=== PATIENT | female | born 1945 | race Caucasian/White ===

== ENCOUNTER → 2018-11-12 | Outpatient (CLI) | payer MEDICARE, OTHER ==
[~2018-11-12] MED LIST: BUPR-168 PO; CEPH500C PO; D50KC PO; DULO60CA58 PO; FLUT16SP22 NSEACH; LIRA0.6P SQ; LOSA50TA6 PO; LVT.05T PO; MODA200T PO; PHEN200T27 PO; VIVELLE DOT TD
--- NOTE | 2018-11-12 10:45 | Diagnostic Imaging Report ---
PROCEDURE: MR imaging cervical spine without contrast. TECHNIQUE: Multiplanar, multisequence MR imaging of the cervical spine was performed without contrast. INDICATION: Neck and left shoulder pain. No prior examinations are available for comparison. FINDINGS: There are stable postsurgical changes of an anterior cervical fusion from C4 through C7. The alignment of cervical spine is otherwise normal. The prevertebral soft tissues are within normal limits. Posterior fossa is unremarkable. The visualized portions of the spinal cord are normal in signal intensity and morphology. C2-C3 is unremarkable. At C3-C4, there is some minimal annular bulging and mild posterior facet arthropathy. There is slight effacement of ventral thecal sac. At C4-C5, there is some annular bulging with slight effacement of ventral thecal sac. There is mild bilateral uncovertebral joint hypertrophy with some moderate bilateral neural foraminal encroachment. At C5-C6, broad-based annular bulging resulting in some moderate spinal stenosis. There is some uncovertebral joint hypertrophy bilaterally with at least moderate bilateral neural foraminal encroachment. At C6-C7, there is minimal annular bulging. C7-T1 is unremarkable. IMPRESSION: Postsurgical changes of an anterior cervical fusion from C4 through C7. Moderate cervical spondylosis and degenerative disc disease as described. Dictated by: Dictated on workstation # [id number]
== END ==
LOC: RAD 08:52
PROVIDERS: ATTEND Physician Assistant
DX: M47.812 Spondylosis without myelopathy or radiculopathy, cervical region (principal); M50.30 Other cervical disc degeneration, unspecified cervical region; Z98.1 Arthrodesis status
CPT/HCPCS: 72141

== ENCOUNTER 2019-01-29 16:26 | Emergency (ER) | payer MEDICARE, OTHER ==
[~2019-01-29] VITALS: Ht 167.6 cm; Wt 83.5 kg
--- OUTSIDE RECORDS SUMMARY | 2019-01-29 16:30 | XMS REPORT | Continuity of Care Document ---
Author Organization Unknown Address Unknown Allergies Active Description Code Type Severity Reaction Onset Reported/Identified Relationship to Patient Clinical Status Yes No Known Drug Allergies [id number] Drug Allergy Unknown N/A 10/05/2008 Medications There is no data. Problems Date Dx Coded Attending Type Code Diagnosis Diagnosed By 01/26/2014 NORI LUNDBERG MD Ot 592.1 CALCULUS OF URETER 01/26/2014 NORI LUNDBERG MD Ot V58.69 OT MED,LT,CURRENT USE 11/12/2018 NORI LUNDBERG MD Ot 592.9 URINARY CALCULUS NOS 11/12/2018 NORI LUNDBERG MD, Ot 592.1 CALCULUS OF URETER 11/12/2018 NORI LUNDBERG MD Ot V72.81 [id number] CARDIOVASCULAR 11/12/2018 NORI LUNDBERG MD Ot V74.8 SCREEN-BACTERIAL DIS NEC 11/12/2018 IKER YADAV Ot M47.812 SPONDYLOSIS W/O MYELOPATHY OR RADICULOPA 11/12/2018 IKER YADAV Ot M50.30 OTHER CERVICAL DISC DEGENERATION, UNSP C 11/12/2018 IKER YADAV Ot Z98.1 ARTHRODESIS STATUS 11/18/2018 IKER YADAV Ot M47.812 SPONDYLOSIS W/O MYELOPATHY OR RADICULOPA 11/18/2018 IKER YADAV Ot M50.30 OTHER CERVICAL DISC DEGENERATION, UNSP C 11/18/2018 IKER YADAV Ot Z98.1 ARTHRODESIS STATUS 12/02/2018 IKER YADAV Ot M47.812 SPONDYLOSIS W/O MYELOPATHY OR RADICULOPA 12/02/2018 IKER YADAV Ot M50.30 OTHER CERVICAL DISC DEGENERATION, UNSP C 12/02/2018 IKER YADAV Ot Z98.1 ARTHRODESIS STATUS 12/17/2018 IKER YADAV Ot M47.812 SPONDYLOSIS W/O MYELOPATHY OR RADICULOPA 12/17/2018 IKER YADAV Ot M50.30 OTHER CERVICAL DISC DEGENERATION, UNSP C 12/17/2018 IKER YADAV Ot Z98.1 ARTHRODESIS STATUS Procedures There is no data. Results There is no data. Encounters ACCT No. Visit Date/Time Discharge Status Pt. Type Provider Facility Loc./Unit Complaint [id number] 01/16/2019 14:19:00 01/16/2019 23:59:59 CLS Preadmit TRE CHANCE APRN [facility] RAD SCREENING [id number] 11/12/2018 08:52:00 11/12/2018 23:59:59 CLS Outpatient IKER YADAV [facility] RAD NECK PAIN [id number] 01/26/2014 07:35:00 01/26/2014 13:30:00 DIS Outpatient NORI LUNDBERG MD [facility] SDC RIGHT URETERAL STONE [id number] 01/25/2014 14:11:00 01/25/2014 23:59:59 CLS Outpatient NORI LUNDBERG MD [facility] PREOP RIGHT URETERAL STONE [id number] 01/21/2014 12:59:00 01/21/2014 23:59:59 CLS Outpatient NORI LUNDBERG MD [facility] RAD STONE
[2019-01-29 16:52] LABS: CLARITY,URINE SL CLOUDY; COLOR,URINE YELLOW; PROTEIN,URINE 2+ (NEGATIVE)
[2019-01-29 16:53] LABS: BILIRUBIN,URINE NEGATIVE (NEGATIVE); GLUCOSE, URINE (UA) TRACE (NEGATIVE); KETONES,URINE TRACE (NEGATIVE); LEUKOCYTE ESTERASE ,URINE 2+ (NEGATIVE); NITRITE,URINE NEGATIVE (NEGATIVE); UROBILINOGEN,URINE 0.2 MG/DL (NORMAL)
[2019-01-29 16:56] LABS: BACTERIA,URINE FEW /HPF; RBC,URINE >100 /HPF; WBC,URINE >100 /HPF
[2019-01-29] MEDS ORDERED: PHENAZOPYRIDINE 100 MG (PYRIDIUM) TABLET PO ONE (17:00)
--- NOTE | 2019-01-29 17:02 | ED GU-Female ---
General Chief Complaint: - Urinary Stated Complaint: URINARY PAIN Source: patient Exam Limitations: no limitations History of Present Illness Date Seen by Provider: Jan 29, 2019 Time Seen by Provider: 16:55 Initial Comments This 73-year-old white female presents with a complaint of dysuria and frequency that began following a cystoscopy a week ago. The patient's had previous urinary tract infections. She states that this discomfort is worse and she has experienced in the past. She denies associated fever or chill. She's had no associated flank pain. She denies nausea or vomiting. She has taken no medication to this point. Allergies and Home Medications Allergies Coded Allergies: No Known Drug Allergies (Verified Allergy, Unknown, 10/05/08) Home Medications Bupropion Hcl 75 Mg Tablet, 75 MG PO BID, (Reported) Cephalexin Monohydrate 500 Mg Capsule, 500 MG PO TID, (Reported) Duloxetine HCl 60 Mg Capsule.dr, 60 MG PO DAILY, (Reported) Ergocalciferol 50,000 Units Cap, 50,000 UNITS PO DAILY, (Reported) Fluticasone Propionate 16 Gm Naspr, 2 SPRAYS NSEACH DAILY, (Reported) Levothyroxine Sodium 50 Mcg Tablet, 50 MCG PO DAILY, (Reported) Liraglutide 0.6 Mg/0.1 Ml Pen.injctr, 0.6 MG SQ HS, (Reported) Losartan Potassium 50 Mg Tablet, 50 MG PO DAILY, (Reported) Modafinil 200 Mg Tablet, 200 MG PO DAILY, (Reported) Phenazopyridine Hcl 200 Mg Tablet, 1 EACH PO TID PRN NEW PRESCRIPTION CALLED IN TO [facility]. Prescribed by: CARMEN MOSES on 01/26/14 1101 [Vivelle Dot Patch] , 0.1 MG TD Q72 HRS, (Reported) Patient Home Medication List Home Medication List Reviewed: Yes Review of Systems Review of Systems Constitutional: No chills, No fever EENTM: no symptoms reported Respiratory: no symptoms reported Cardiovascular: No chest pain Gastrointestinal: no symptoms reported Genitourinary: burning, dysuria, frequency; denies flank pain Musculoskeletal: No back pain Skin: no symptoms reported Psychiatric/Neurological: No Symptoms Reported Endocrine: No Symptoms Reported Past Opgybai-Mcsscx-Mipfbp Hx Past Med/Social Hx: Reviewed Nursing Past Med/Soc Hx Past Medical History Reproductive Disorders: No Physical Exam Vital Signs Capillary Refill : Height, Weight, BMI Height: 5'6.00" Weight: 184lbs. oz. 83.585846go; BMI Method: General Appearance: WD/WN, mild distress HEENT: normal ENT inspection Neck: normal inspection Cardiovascular: regular rate, rhythm Respiratory: lungs clear Gastrointestinal: normal bowel sounds, soft, tenderness Back: normal inspection Extremities: normal range of motion, non-tender Neurologic/Psychiatric: no motor/sensory deficits, alert, normal mood/affect Skin: normal color, warm/dry Progress/Results/Core Measures Suspected Sepsis SIRS Temperature: Pulse: Respiratory Rate: Blood Pressure / Mean: Results/Orders Lab Results Laboratory Tests Test 01/29/19 16:30 Range/Units Urine Color YELLOW Urine Clarity SL CLOUDY Urine pH 6.0 5-9 Urine Specific [place] >=1.030 1.016-1.022 Urine Protein 2+ H NEGATIVE Urine Glucose (UA) TRACE H NEGATIVE Urine Ketones TRACE H NEGATIVE Urine Nitrite NEGATIVE NEGATIVE Urine Bilirubin NEGATIVE NEGATIVE Urine Urobilinogen 0.2 NORMAL MG/DL Urine Leukocyte Esterase 2+ H NEGATIVE Urine RBC (Auto) 3+ H NEGATIVE Urine RBC >100 H /HPF Urine WBC >100 H /HPF Urine Squamous Epithelial Cells 5-10 /HPF Urine Crystals NONE /LPF Urine Bacteria FEW H /HPF Urine Casts NONE /LPF Urine Mucus NEGATIVE /LPF Urine Culture Indicated YES My Orders Orders - TIKA FAULKNER MD Ua Culture If Indicated (01/29/19 16:42) Phenazopyridine Tablet (Pyridium Tablet) (01/29/19 17:00) Urine Culture (01/29/19 16:30) Ceftriaxone For Im Use (Rocephin For Im (01/30/19 09:00) Lidocaine 1% Inj 20 Ml (Xylocaine 1% Inj (01/29/19 17:30) Medications Given in ED Current Medications Medications Dose Ordered Sig/Jaiden Route Start Time Stop Time Status Last Admin Dose Admin Phenazopyridine HCl 200 mg ONCE ONCE PO 01/29/19 17:00 01/29/19 17:01 DC 01/29/19 17:07 200 MG Vital Signs/I&O Capillary Refill : Progress Note : Time: 17:22 Progress Note Patient's urinalysis demonstrated urinary tract infection. Culture and sensitivity was requested. The patient was moderately improved with Pyridium orally. Patient received a gram Rocephin IM. Discussed the findings with patient and family. We will initiate Macrobid for the next 7 days. I asked that she use Pyridium for ladder spasm and discomfort. I recommended following up with Dr. BERGER on Saturday. I invited her to return the emergency department if any further problems or questions. Departure Impression Primary Impression: Urinary tract infection Qualified Codes: N30.00 - Acute cystitis without hematuria Disposition: HOME, SELF-CARE Condition: Improved Departure-Patient Inst. Decision time for Depature: 17:23 Referrals: QUINTON BERGER DO (PCP/Family) Primary Care Physician Patient Instructions: Urinary Tract Infection, Adult (DC) Add. Discharge Instructions: Macrobid and Pyridium as prescribed. Follow-up Dr. BERGER on Saturday. Return if any problems or questions. All discharge instructions reviewed with patient and/or family. Voiced understanding. Scripts Phenazopyridine HCl (Pyridium) 200 Mg Tablet 1 TAB PO TID for 7 Days, TAB Prov: TIKA FAULKNER MD 01/29/19 Nitrofurantoin Monohyd/M-Cryst (Macrobid 100 mg Capsule) 100 Mg Capsule 1 TAB PO BID for 7 Days, CAP Prov: TIKA FAULKNER MD 01/29/19 TIKA FAULKNER MD Jan 29, 2019 17:02
[2019-01-29] MEDS ORDERED: cefTRIAXone 1,000 MG/2.86 ml vial (IM ONLY) ONE (17:23)
[2019-01-29] MEDS ORDERED: PHEN-640 PO (17:25)
[2019-01-29] MEDS ORDERED: NITR-65 PO (17:25)
[2019-01-29] MEDS ORDERED: LIDOCAINE 1% INJ 20 ML 20 ML VIAL INJ ONE (17:30)
[2019-01-29 17:46] VITALS: BP 166/68
[2019-01-30] MEDS ORDERED: cefTRIAXone 1,000 MG/2.86 ml vial (IM ONLY) IM SCH (09:00)
== END 2019-01-29 17:45 | disposition home or self-care (01) ==
LOC: EDUNIT# 16:26 → ER FS 16:27
DX: N39.0 Urinary tract infection, site not specified (principal); Z79.51 Long term (current) use of inhaled steroids
CPT/HCPCS: 81000; 87077; 87088; 87186; 96372; 99284

== ENCOUNTER 2021-03-06 10:38 | Emergency (ER) | payer MEDICARE, OTHER ==
[~2021-03-06] VITALS: Ht 165.1 cm; Wt 78.0 kg
[~2021-03-06 10:38] MED LIST changes: +NITR-65 PO; +PHEN-640 PO
--- NOTE | 2021-03-06 10:55 | ED General ---
General Chief Complaint: Trauma-Non Activation Stated Complaint: FALL History of Present Illness Date Seen by Provider: Mar 06, 2021 Time Seen by Provider: 10:51 Initial Comments 75-year-old female presents via EMS with complaint of fall today at home. States her feet slipped out from under her and she laid on her bottom. Now having pain in her buttocks area without radiation or weakness. Denies loss of bowel or bladder control, however she states "I think you may have a UTI" denies blood in her urine, frequency or hesitancy. Denies any back or neck pain, denies head injury Allergies and Home Medications Allergies Coded Allergies: No Known Drug Allergies (Verified Allergy, Unknown, 10/05/08) Home Medications Bupropion Hcl 75 Mg Tablet, 75 MG PO BID, (Reported) Cephalexin Monohydrate 500 Mg Capsule, 500 MG PO TID, (Reported) Duloxetine HCl 60 Mg Capsule.dr, 60 MG PO DAILY, (Reported) Ergocalciferol 50,000 Units Cap, 50,000 UNITS PO DAILY, (Reported) Fluticasone Propionate 16 Gm Naspr, 2 SPRAYS NSEACH DAILY, (Reported) Levothyroxine Sodium 50 Mcg Tablet, 50 MCG PO DAILY, (Reported) Liraglutide 0.6 Mg/0.1 Ml Pen.injctr, 0.6 MG SQ HS, (Reported) Losartan Potassium 50 Mg Tablet, 50 MG PO DAILY, (Reported) Modafinil 200 Mg Tablet, 200 MG PO DAILY, (Reported) Nitrofurantoin Monohyd/M-Cryst 100 Mg Capsule, 1 TAB PO BID Prescribed by: TIKA FAULKNER MD on 01/29/19 1725 Phenazopyridine HCl 200 Mg Tablet, 1 TAB PO TID Prescribed by: TIKA FAULKNER MD on 01/29/19 1725 Phenazopyridine Hcl 200 Mg Tablet, 1 EACH PO TID PRN NEW PRESCRIPTION CALLED IN TO [facility]. Prescribed by: CARMEN MOSES on 01/26/14 1101 Sulfamethoxazole/Trimethoprim 1 Each Tablet, 1 EACH PO BID Prescribed by: TRICIA MAY on 03/06/21 1210 [Vivelle Dot Patch] , 0.1 MG TD Q72 HRS, (Reported) Patient Home Medication List Home Medication List Reviewed: Yes Review of Systems Review of Systems Constitutional: No fever, No malaise, No weakness Respiratory: No cough, No short of breath Cardiovascular: No chest pain, No edema, No palpitations Gastrointestinal: No abdominal pain, No loss of appetite, No nausea, No vomiting Genitourinary: No dysuria, No frequency, No hematuria Musculoskeletal: No back pain, No joint pain; other (pain in buttocks and sacral area) Skin: No change in color, No rash Psychiatric/Neurological: Denies Numbness, Denies Paresthesia, Denies Tremors, Denies Weakness Past Rcmlsnu-Heyink-Rzglcy Hx Patient Social History Tobacco Use?: No Immunizations Up To Date Tetanus Booster (TDap): Unknown Seasonal Allergies Seasonal Allergies: No Past Medical History Surgeries: Yes (RIGHT KNEE SCOPE, SINUS SX, CATARACTS, CYSTOSCOPY, BLADDER TIE UP) Respiratory: No Cardiac: Yes Hypertension Neurological: No Reproductive Disorders: No Genitourinary: No Gastrointestinal: No Musculoskeletal: Yes (ARTHRITIIS) Endocrine: Yes Hypothyroidsim, Diabetes, Non-Insulin dep HEENT: No Cancer: No Psychosocial: Yes Integumentary: No Blood Disorders: No Physical Exam Vital Signs Vital Signs - First Documented Capillary Refill : Height, Weight, BMI Height: 5'6.00" Weight: 184lbs. oz. 83.419575jv; 29.69 BMI Method:Stated General Appearance: No Apparent Distress, WD/WN Respiratory: Chest Non Tender, Lungs Clear Cardiovascular: Regular Rate, Rhythm, No Edema, No JVD Gastrointestinal: Non Tender, Soft Back: Normal Inspection, No CVA Tenderness, No Vertebral Tenderness Extremity: Normal Capillary Refill, Non Tender, Other Neurologic/Psychiatric: Alert, No Motor/Sensory Deficits, Normal Mood/Affect Skin: Normal Color, Warm/Dry Progress/Results/Core Measures Suspected Sepsis SIRS Temperature: Pulse: Respiratory Rate: Blood Pressure / Mean: Results/Orders Lab Results Laboratory Tests Test 03/06/21 11:40 Range/Units Urine Color YELLOW Urine Clarity CLOUDY Urine pH 6.5 5-9 Urine Specific [place] 1.025 H 1.016-1.022 Urine Protein 2+ H NEGATIVE Urine Glucose (UA) NEGATIVE NEGATIVE Urine Ketones 1+ H NEGATIVE Urine Nitrite NEGATIVE NEGATIVE Urine Bilirubin NEGATIVE NEGATIVE Urine Urobilinogen 2.0 < = 1.0 MG/DL Urine Leukocyte Esterase 2+ H NEGATIVE Urine RBC (Auto) 2+ H NEGATIVE Urine RBC NONE /HPF Urine WBC TNTC H /HPF Urine Squamous Epithelial Cells 0-2 /HPF Urine Crystals NONE /LPF Urine Bacteria LARGE H /HPF Urine Casts NONE /LPF Urine Mucus NEGATIVE /LPF Urine Culture Indicated YES My Orders Orders - TRICIA MAY DO Pelvis (Ap) (03/06/21 10:49) Urinalysis (03/06/21 10:49) Urine Culture (03/06/21 11:40) Vital Signs/I&O 03/06/21 03/06/21 10:38 10:38 Temp 37.9 37.9 Pulse 100 100 Resp 18 18 B/P (MAP) 144/66 (92) 144/66 (92) Pulse Ox 94 94 O2 Delivery Room Air Room Air Capillary Refill : Diagnostic Imaging Diagonstic Imaging: Xray Comments FINDINGS AND IMPRESSION: 1: Bowel gas obscures the lower sacrum and coccyx region rendering this area uninterpretable. Dedicated x-rays of the sacrum/coccyx including lateral views may help better evaluate. 2: The remainder of the hips, pelvis, and visualized lower lumbar spine shows no acute fracture or dislocation. 3: There is enthesopathy involving the greater trochanter. There are degenerative spurs involving the bilateral sacroiliac joints. Dictated on workstation # [id number] Dict: 03/06/21 1120 Trans: 03/06/21 1124 [id number] Interpreted by: WILLIS PITT MD Electronically signed by: Departure Impression Primary Impression: Fall from ground level Additional Impressions: Sacral contusion Qualified Codes: S30.0XXA - Contusion of lower back and pelvis, initial encounter UTI (urinary tract infection) Qualified Codes: N39.0 - Urinary tract infection, site not specified Disposition: HOME, SELF-CARE Condition: Stable Departure-Patient Inst. Decision time for Depature: 12:10 Referrals: QUINTON BERGER DO (PCP/Family) Primary Care Physician Patient Instructions: Coccyx Injury (DC), Urinary Tract Infection, Adult ED Add. Discharge Instructions: follow up with Dr Berger in 1 week All discharge instructions reviewed with patient and/or family. Voiced understan ding. Scripts Sulfamethoxazole/Trimethoprim (Bactrim Ds Tablet) 1 Each Tablet 1 EACH PO BID, #14 TAB 0 Refills Prov: TRICIA MAY DO 03/06/21 Sulfamethoxazole/Trimethoprim (Bactrim Ds Tablet) 1 Each Tablet 1 EACH PO BID, #14 TAB 0 Refills Prov: TRICIA MAY DO 03/06/21 TRICIA MAY DO Mar 06, 2021 10:55
--- NOTE | 2021-03-06 11:24 | Diagnostic Imaging Report ---
CLINICAL INDICATION: Patient is status post fall with pain to the tailbone. EXAM: X-ray of the pelvis, AP view. COMPARISON: [facility] x-ray dated 01/26/2014. FINDINGS AND IMPRESSION: 1: Bowel gas obscures the lower sacrum and coccyx region rendering this area uninterpretable. Dedicated x-rays of the sacrum/coccyx including lateral views may help better evaluate. 2: The remainder of the hips, pelvis, and visualized lower lumbar spine shows no acute fracture or dislocation. 3: There is enthesopathy involving the greater trochanter. There are degenerative spurs involving the bilateral sacroiliac joints. Dictated by: Dictated on workstation # [id number]
[2021-03-06 12:01] LABS: COLOR,URINE YELLOW
[2021-03-06 12:02] LABS: BACTERIA,URINE LARGE /HPF; BILIRUBIN,URINE NEGATIVE (NEGATIVE); CLARITY,URINE CLOUDY; GLUCOSE, URINE (UA) NEGATIVE (NEGATIVE); KETONES,URINE 1+ (NEGATIVE); LEUKOCYTE ESTERASE ,URINE 2+ (NEGATIVE); NITRITE,URINE NEGATIVE (NEGATIVE); PH,URINE 6.5 (5-9); PROTEIN,URINE 2+ (NEGATIVE); SQUAMOUS EPITHELIAL CELL,UR 0-2 /HPF; WBC,URINE TNTC /HPF
[2021-03-06] MEDS ORDERED: SULF1TAB38 PO ×2 (12:10→12:14)
[2021-03-06 12:33] VITALS: BP 141/79
--- OUTSIDE RECORDS SUMMARY | 2021-03-07 06:30 | XMS REPORT | Clinical Summary ---
Author Author [facility] Organization [facility] Address Unknown Phone Unavailable Care Team Providers Care Translator Deaf Name Role Phone Markus Black PCP Source Comments Some departments are not documenting in the electronic medical record. If you d o not see the information that you expected, contact Release of Information in [facility] Information Management department at [phone] for further assistan ce in locating additional records.[facility] Allergies No Known Active Allergies Medications End Date Status Medication Sig Dispensed Refills Start Date Active alogliptin-metformin Take 1 tablet 0 12.5-1,000 mg tab by mouth twice daily. Active exenatide microspheres 2 Inject under 0 mg/0.65 mL pnij the skin. Active duloxetine DR (CYMBALTA) Take 60 mg by 0 60 mg capsule mouth daily. Active fluoxetine(+) (PROZAC) 40 Take 40 mg by 0 mg capsule mouth daily. Active levothyroxine (SYNTHROID) Take 50 mcg 0 50 mcg tablet by mouth daily 30 minutes before breakfast. Active losartan (COZAAR) 50 mg Take 50 mg by 0 tablet mouth daily. Active modafinil (PROVIGIL) 200 Take 200 mg 0 mg tablet by mouth daily. Active oxybutynin XL (DITROPAN Take 5 mg by 0 XL) 5 mg tablet mouth daily. Active simvastatin (ZOCOR) 20 mg Take 20 mg by 0 tablet mouth at bedtime daily. Active meloxicam (MOBIC) 7.5 mg Take 7.5 mg 0 tablet by mouth daily. Active ciprofloxacin (CIPRO) 250 Take 500 mg 0 mg tablet by mouth daily. Active Problems No known active problems Surgical History Surgery Date Site/Laterality Comments NASAL/SINUS ENDOSCOPY 07/29/2001 - 07/28/2002 KNEE ARTHROSCOPY 07/29/2006 - 07/28/2007 HYSTERECTOMY 07/29/2008 - 07/28/2009 FOOT SURGERY CERVICAL FUSION 07/23/2016 Social History Date Tobacco Use Types Packs/Day Years Used Never Smoker Smokeless Tobacco: Never Used Drinks/Week oz/Week Comments Alcohol Use No Sex Assigned at Date Recorded Not on file Last Filed Vital Signs Reading Time Taken Comments Vital Sign 176/90 04/08/2017 10:04 AM CDT Blood Pressure 70 04/08/2017 10:04 AM CDT Pulse - - Temperature - - Respiratory Rate - - Oxygen Saturation - - Inhaled Oxygen Concentration 77.6 kg (171 lb) 04/08/2017 10:04 AM CDT Weight 167.6 cm (5' 6") 04/08/2017 10:04 AM CDT Height 27.6 04/08/2017 10:04 AM CDT Body Mass Index Plan of Treatment Health Maintenance Due Date Last Done Comments MEDICARE ANNUAL WELLNESS 1947 VISIT DTAP/TDAP VACCINES (1 - 1965 Tdap) HEPATITIS C SCREENING 1965 PHYSICAL (COMPREHENSIVE) 1965 EXAM BREAST CANCER SCREENING 1987 COLORECTAL CANCER 1997 SCREENING SHINGLES RECOMBINANT 1997 VACCINE (1 of 2) OSTEOPOROSIS 2012 SCREENING/MONITORING PNEUMONIA (PPSV23) 2012 VACCINE (1 of 1 - PPSV23) INFLUENZA VACCINE 04/28/2021 Results Not on filefrom Last 3 Months Insurance Type Payer Benefit Subscriber ID Effective Phone Address Plan / Dates Group Medicare MEDICARE MEDICARE [id number] 2008- PART A AND Present B PPO ELIE DELGADILLO [id number] [employer] [phone] Advance Directives 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
== END 2021-03-06 12:33 | disposition home or self-care (01) ==
LOC: EDUNIT# 10:48 → ER FS 10:49
DX: S30.0XXA Contusion of lower back and pelvis, initial encounter (principal); N39.0 Urinary tract infection, site not specified; I10 Essential (primary) hypertension; E03.9 Hypothyroidism, unspecified; E11.9 Type 2 diabetes mellitus without complications; Z79.890 Hormone replacement therapy; W01.0XXA Fall on same level from slipping, tripping and stumbling without subsequent striking against object, initial encounter
CPT/HCPCS: 72170; 81000; 87077; 87088; 87186

== ENCOUNTER 2021-03-08 05:44 | Emergency (ER) | payer MEDICARE ==
[~2021-03-08] VITALS: Ht 167.7 cm; Wt 68.0 kg
[~2021-03-08 05:44] MED LIST changes: +SULF1TAB38 PO
[2021-03-08] MEDS ORDERED: NS IV 1000 ML 1,000 ML IV STA (05:54)
[2021-03-08] MEDS ORDERED: ONDANSETRON 4 MG/2 ML (SDV) Z0FRAN IVP STA (05:54)
--- NOTE | 2021-03-08 06:06 | ED General ---
General Chief Complaint: - Urinary Stated Complaint: UNABLE TO URINATE Source of Information: Patient, EMS, Old Records (STEFANIE COOPER MD) History of Present Illness Date Seen by Provider: Mar 08, 2021 Time Seen by Provider: 05:44 Initial Comments 75-year-old female presenting by EMS with complaints of nausea, vomiting, feeling weak. She states that she has not been able to urinate since 5 PM. She was seen on March 06 and diagnosed with a UTI. She was started on Bactrim at that time but states that since starting the antibiotic she has had nausea vomiting. She was feeling weak and dizzy this morning and said she was unable to urinate since 5 PM last night she had EMS bring her to the emergency department to be evaluated. She denies having any diarrhea. She has some discomfort to palpation over the bladder area in her lower abdomen. Associated Systoms: No Chest Pain, No Cough, No Diaphoresis, No Fever/Chills; Loss of Appetite, Malaise, Nausea/Vomiting, Weakness (general) (STEFANIE COOPER MD) Allergies and Home Medications Allergies Coded Allergies: No Known Drug Allergies (Verified Allergy, Unknown, 10/05/08) Home Medications Bupropion Hcl 75 Mg Tablet, 75 MG PO BID, (Reported) Cephalexin Monohydrate 500 Mg Capsule, 500 MG PO TID, (Reported) Duloxetine HCl 60 Mg Capsule.dr, 60 MG PO DAILY, (Reported) Ergocalciferol 50,000 Units Cap, 50,000 UNITS PO DAILY, (Reported) Fluticasone Propionate 16 Gm Naspr, 2 SPRAYS NSEACH DAILY, (Reported) Levothyroxine Sodium 50 Mcg Tablet, 50 MCG PO DAILY, (Reported) Liraglutide 0.6 Mg/0.1 Ml Pen.injctr, 0.6 MG SQ HS, (Reported) Losartan Potassium 50 Mg Tablet, 50 MG PO DAILY, (Reported) Modafinil 200 Mg Tablet, 200 MG PO DAILY, (Reported) Nitrofurantoin Monohyd/M-Cryst 100 Mg Capsule, 1 TAB PO BID Prescribed by: TIKA FAULKNER MD on 01/29/19 1725 Ondansetron 4 Mg Tab.rapdis, 4 MG PO Q6H PRN for NAUSEA/VOMITING Prescribed by: STEFANIE COOPER on 03/08/21 0710 Phenazopyridine HCl 200 Mg Tablet, 1 TAB PO TID Prescribed by: TIKA FAULKNER MD on 01/29/19 1725 Phenazopyridine Hcl 200 Mg Tablet, 1 EACH PO TID PRN NEW PRESCRIPTION CALLED IN TO [facility]. Prescribed by: CARMEN MOSES on 01/26/14 1101 Sulfamethoxazole/Trimethoprim 1 Each Tablet, 1 EACH PO BID Prescribed by: TRICIA MAY on 03/06/21 1210 Sulfamethoxazole/Trimethoprim 1 Each Tablet, 1 EACH PO BID Prescribed by: TRICIA NAIRSTKIARRA on 03/06/21 1214 [Vivelle Dot Patch] , 0.1 MG TD Q72 HRS, (Reported) Patient Home Medication List Home Medication List Reviewed: Yes (STEFANIE COOPER MD) Review of Systems Review of Systems Constitutional: see HPI EENTM: no symptoms reported Respiratory: no symptoms reported Cardiovascular: no symptoms reported Gastrointestinal: see HPI Genitourinary: see HPI, decreased output Musculoskeletal: back pain (chronic) Skin: no symptoms reported Psychiatric/Neurological: Weakness (general) (STEFANIE COOPER MD) Past Nxplnco-Qookwd-Ghhunt Hx Immunizations Up To Date Tetanus Booster (TDap): Unknown (STEFANIE COOPER MD) Seasonal Allergies Seasonal Allergies: No (STEFANIE COOPER MD) Past Medical History Surgery/Hospitalization HX: Hyst with bladder suspension, 2 add'l bladder suspension, knee arthroscopy Surgeries: Yes (RIGHT KNEE SCOPE, SINUS SX, CATARACTS, CYSTOSCOPY, BLADDER TIE UP) Respiratory: No Cardiac: Yes Hypertension Neurological: No Reproductive Disorders: No Genitourinary: No Gastrointestinal: No Musculoskeletal: Yes (ARTHRITIIS) Endocrine: Yes Hypothyroidsim, Diabetes, Non-Insulin dep HEENT: No Cancer: No Psychosocial: Yes Integumentary: No Blood Disorders: No (STEFANIE COOPER MD) Physical Exam Vital Signs Vital Signs - First Documented 03/08/21 05:44 Temp 36.4 Pulse 83 Resp 12 B/P (MAP) 135/66 (89) Pulse Ox 97 O2 Delivery Room Air ([facility]) Vital Signs Capillary Refill : (STEFANIE COOPER MD) Height, Weight, BMI Height: 5'6.00" Weight: 184lbs. oz. 83.185313mq; 28.00 BMI Method:Stated General Appearance: No Apparent Distress HEENT: PERRL/EOMI, Pharynx Normal Respiratory: Chest Non Tender, Lungs Clear, Normal Breath Sounds Cardiovascular: Regular Rate, Rhythm, Normal Peripheral Pulses Gastrointestinal: Normal Bowel Sounds, No Pulsatile Mass, Soft; No Distended, No Guarding, No Rebound; Tenderness (mild tenderness to palpation over suprapubic area) Rectal: Deferred Extremity: Normal Capillary Refill, No Pedal Edema Neurologic/Psychiatric: Alert Skin: Normal Color, Warm/Dry (STEFANIE COOPER MD) Progress/Results/Core Measures Suspected Sepsis SIRS Temperature: Pulse: Respiratory Rate: Laboratory Tests 03/08/21 05:55: White Blood Count 8.6 Blood Pressure / Mean: Laboratory Tests 03/08/21 05:55: Creatinine 1.11, Platelet Count 168, Total Bilirubin 0.6 (STEFANIE COOPER MD) Results/Orders Lab Results Laboratory Tests Test 03/08/21 05:55 Range/Units White Blood Count 8.6 4.3-11.0 10^3/uL Red Blood Count 4.24 L 4.35-5.85 10^6/uL Hemoglobin 13.2 11.5-16.0 G/DL Hematocrit 40 35-52 % Mean Corpuscular Volume 94 80-99 FL Mean Corpuscular Hemoglobin 31 25-34 PG Mean Corpuscular Hemoglobin Concent 33 32-36 G/DL Red Cell Distribution Width 13.2 10.0-14.5 % Platelet Count 168 130-400 10^3/uL Mean Platelet Volume 11.1 H 7.4-10.4 FL Immature Granulocyte % (Auto) 0 % Neutrophils (%) (Auto) 88 H 42-75 % Lymphocytes (%) (Auto) 7 L 12-44 % Monocytes (%) (Auto) 5 0-12 % Eosinophils (%) (Auto) 0 0-10 % Basophils (%) (Auto) 0 0-10 % Neutrophils # (Auto) 7.5 1.8-7.8 X 10^3 Lymphocytes # (Auto) 0.6 L 1.0-4.0 X 10^3 Monocytes # (Auto) 0.4 0.0-1.0 X 10^3 Eosinophils # (Auto) 0.0 0.0-0.3 10^3/uL Basophils # (Auto) 0.0 0.0-0.1 10^3/uL Immature Granulocyte # (Auto) 0.0 0.0-0.1 10^3/uL Neutrophils % (Manual) 83 % Lymphocytes % (Manual) 7 % Monocytes % (Manual) 5 % Band Neutrophils 5 % Smudge Cells SLIGHT Percent Immature Platelet Fraction 7.1 0.0-7.6 % Hypochromasia SLIGHT Microcytosis SLIGHT Concord Cells SLIGHT Sodium Level 133 L 135-145 MMOL/L Potassium Level 3.7 3.6-5.0 MMOL/L Chloride Level 92 L 98-107 MMOL/L Carbon Dioxide Level 27 21-32 MMOL/L Anion Gap 14 5-14 MMOL/L Blood Urea Nitrogen 15 7-18 MG/DL Creatinine 1.11 0.60-1.30 MG/DL Estimat Glomerular Filtration Rate 48 BUN/Creatinine Ratio 14 Glucose Level 134 H 70-105 MG/DL Calcium Level 9.3 8.5-10.1 MG/DL Corrected Calcium 9.7 8.5-10.1 MG/DL Total Bilirubin 0.6 0.1-1.0 MG/DL Aspartate Amino Transf (AST/SGOT) 49 H 5-34 U/L Alanine Aminotransferase (ALT/SGPT) 25 0-55 U/L Alkaline Phosphatase 59 40-136 U/L Total Protein 6.4 6.4-8.2 GM/DL Albumin 3.5 3.2-4.5 GM/DL Lipase 20 8-78 U/L (TRE ESPARZA DO) My Orders Orders - TRE ESPARZA DO Straight Cath For Spec.-Adult (03/08/21 07:45) (TRE ESPARZA DO) Vital Signs/I&O 03/08/21 05:44 Temp 36.4 Pulse 83 Resp 12 B/P (MAP) 135/66 (89) Pulse Ox 97 O2 Delivery Room Air (TRE ESPARZA DO) Vital Signs/I&O Capillary Refill : (STEFANIE COOPER MD) Progress Note #1: Progress Note Check bladder scan to evaluate for retention versus lack of urine production with her complaint of nausea and vomiting. Obtain basic labs and give IV fluid bolus in addition to Zofran for nausea. Bladder scan had a little over 450 mL of urine present. Can see if she can urinate and if not able to go perform a straight cath to drain her bladder. Progress Note #2: Time: 06:44 Progress Note CBC shows a stable white blood cell count without elevation but she does have a left shift. Her chemistry does not show acute significant normality but she does have a mild low GFR of 48. Will see if she is able to urinate after fluids and then see what post-void residual is for her to help determine if she needs a catheter for home for a few days or if she can just have her bladder drained here as a single time treatment. If she is not going to be able to tolerate the Bactrim without stomach upset at least add on anti-emetic for home if not change to cephalexin or antibiotic that is better tolerated. Urine culture shows infection but sensitivity for specimen from SaturdayMar.06 is not complete as of yet. After speaking with pt and they felt she could take the bactrim with food and nausea medicine would help rather than change medicine. Will see what post-void residual is and how much urine she can get out when she tries to urinate now that fluids are done and Rocephin 1 gm given. Care passed to Dr. Esparza at shift change to determine final disposition (STEFANIE COOPER MD) Transfer of Care Transfer of Care Time: 07:00 Care transferred to: Dr. Tre Esparza (STEFANIE COOPER MD) Departure Communication (Admissions) Patient with high postvoid residual urine retention of 500 mL. She has had previous bladder surgery likely contributing to mechanical cause of urinary retention. Patient offered to be sent home with indwelling catheter with leg bag versus straight catheterization with follow-up with urologist in the next several days. Patient elects for straight catheterization and agrees to follow- up with her PCP and urologist for further management. Return precautions reviewed. Patient verbalizes understanding agreement discharge instructions prior to departure. (TRE ESPARZA DO) Impression Primary Impression: Urinary hesitancy Additional Impressions: Cystitis without hematuria Nausea & vomiting Qualified Codes: R11.14 - Bilious vomiting Urinary retention Disposition: 01 HOME, SELF-CARE Condition: Improved Departure-Patient Inst. Referrals: QUINTON BERGER DO (PCP/Family) Primary Care Physician Patient Instructions: Nausea and Vomiting, Adult ED, Urinary Tract Infection, Adult ED Add. Discharge Instructions: Drink plenty of fluids and stay well hydrated. Continue on the Bactrim (Trimethoprim/Sulfamethoxazole) antibiotic for now and take it with food as well as use the nausea medicine if needed to help keep your stomach settled so you can keep it down and stay hydrated. All discharge instructions reviewed with patient and/or family. Voiced understanding. Scripts Ondansetron (Ondansetron Odt) 4 Mg Tab.rapdis 4 MG PO Q6H PRN for NAUSEA/VOMITING for 4 Days, #16 TAB 0 Refills Prov: STEFANIE COOPER MD 03/08/21 STEFANIE COOPER MD Mar 08, 2021 06:06 TRE ESPARZA DO Mar 08, 2021 07:48
[2021-03-08 06:13] LABS: BASOPHILS % (AUTO) 0 % (0-10); EOSINOPHILS % (AUTO) 0 % (0-10); HEMATOCRIT 40 % (35-52); HEMOGLOBIN 13.2 G/DL (11.5-16.0); LYMPHOCYTES # (AUTO) 0.6 X 10^3 (1.0-4.0); LYMPHOCYTES % (AUTO) 7 % (12-44); MEAN CORPUSCULAR HEMOGLOBIN 31 PG (25-34); MEAN CORPUSCULAR HGB CONC 33 G/DL (32-36); MEAN CORPUSCULAR VOLUME 94 FL (80-99); MEAN PLATELET VOLUME 11.1 FL (7.4-10.4); MONOCYTES # (AUTO) 0.4 X 10^3 (0.0-1.0); MONOCYTES % (AUTO) 5 % (0-12); NEUTROPHILS # (AUTO) 7.5 X 10^3 (1.8-7.8); NEUTROPHILS % (AUTO) 88 % (42-75); PLATELET COUNT 168 10^3/uL (130-400); WHITE BLOOD COUNT 8.6 10^3/uL (4.3-11.0)
[2021-03-08 06:36] LABS: CREATININE SERUM 1.11 MG/DL (0.60-1.30); POTASSIUM 3.7 MMOL/L (3.6-5.0)
[2021-03-08 06:37] LABS: ALBUMIN 3.5 GM/DL (3.2-4.5); BAND NEUTROPHILS 5 %; BILIRUBIN,TOTAL 0.6 MG/DL (0.1-1.0); CALCIUM 9.3 MG/DL (8.5-10.1); HYPOCHROMASIA SLIGHT; LYMPHOCYTES % (MANUAL) 7 %; MONOCYTES % (MANUAL) 5 %; NEUTROPHILS % (MANUAL) 83 %; SMUDGE CELLS SLIGHT; TOTAL PROTEIN 6.4 GM/DL (6.4-8.2)
[2021-03-08 06:38] LABS: BURR CELLS SLIGHT; MICROCYTOSIS SLIGHT
[2021-03-08] MEDS ORDERED: cefTRIAXone 1,000 MG in WATER (STERILE) FOR INJECTION 10 ML IV STA (06:43)
[2021-03-08] MEDS ORDERED: ONDA4TAB11 PO (07:10)
[2021-03-08 08:07] VITALS: BP 136/72
[2021-03-08 08:10] LABS: CLARITY,URINE CLOUDY; COLOR,URINE DARK YELLOW; GLUCOSE, URINE (UA) NEGATIVE (NEGATIVE); KETONES,URINE 1+ (NEGATIVE); NITRITE,URINE NEGATIVE (NEGATIVE); PROTEIN,URINE 2+ (NEGATIVE)
[2021-03-08 08:11] LABS: AMORPHOUS SEDIMENT,UR MOD AMOR URATES /LPF; BACTERIA,URINE MODERATE /HPF; BILIRUBIN,URINE 1+ (NEGATIVE); LEUKOCYTE ESTERASE ,URINE 1+ (NEGATIVE); WBC,URINE >100 /HPF
== END 2021-03-08 08:07 | disposition home or self-care (01) ==
LOC: EDUNIT# 05:44 → ER FS 05:45
DX: N30.90 Cystitis, unspecified without hematuria (principal); I10 Essential (primary) hypertension; E11.9 Type 2 diabetes mellitus without complications; E03.9 Hypothyroidism, unspecified; Z79.890 Hormone replacement therapy; Z79.84 Long term (current) use of oral hypoglycemic drugs; Z79.899 Other long term (current) drug therapy
CPT/HCPCS: 36415; 51702; 80053; 81000; 83690; 85007; 85027; 87088

== ENCOUNTER → 2021-03-22 | Outpatient (CLI) | payer MEDICARE ==
[~2021-03-22] MED LIST changes: +ONDA4TAB11 PO
== END ==
LOC: LAB FS 10:20
PROVIDERS: ATTEND Orthopaedic Surgery
DX: Z01.812 Encounter for preprocedural laboratory examination (principal); Z20.822 Contact with and (suspected) exposure to COVID-19
CPT/HCPCS: 87635; 87636